=== PATIENT | male | born 1950 | race African-American/Black ===

== ENCOUNTER 2023-07-19 07:51 | Outpatient (CLI) | payer MEDICARE, SELFPAY | END 2023-07-19 07:52 | disposition home or self-care (01) | LOC: ANHAUDASC 07:54 | PROVIDERS: PCP Otolaryngology; Visit Provider Otolaryngology | DX: H90.3 Sensorineural hearing loss, bilateral (principal) | CPT/HCPCS: 92557; 92567 ==